=== PATIENT | female | born 1930 | race Caucasian/White ===

== ENCOUNTER 2016-12-17 19:11 | Emergency (ER) | payer OTHER ==
[~2016-12-17] VITALS: Ht 157.5 cm; Wt 71.4 kg
[~2016-12-17 19:11] MED LIST: CIPRO500 MG PO
[2016-12-17 20:08] LABS: HEMATOCRIT 38.4 % (36.0-46.0); MCH 29.5 PG (29.0-34.0); MCHC 33.6 G/DL (30.0-36.0); MCV 87.9 FL (83-99); MEAN PLAT.VOLUME 9.7 uM^3 (9.5-12.4); PLATELET COUNT 184 K/uL (156-360); RBC DIS.WIDTH-CV 12.7 % (11.8-14.6); RBC DIS.WIDTH-SD 41.1 % (39-53); RED BLOOD COUNT 4.37 M/uL (3.80-5.20); WHITE BLOOD COUNT 5.9 K/uL (4.1-10.2)
[2016-12-17 20:24] LABS: CHLORIDE 99 mEq/L (99-109); POTASSIUM 4.2 mEq/L (3.7-5.4); SODIUM 137 mEq/L (136-147)
[2016-12-17 20:26] LABS: GLUCOSE 100 mg/dL (70-99)
[2016-12-17 20:27] LABS: ANION GAP 13 MEQ/L (2-14)
[2016-12-17 20:29] LABS: GFR ESTIMATE (CALCULATED) 38 mL/min/; TROP-I INTERPRETATION NEGATIVE; TROPONIN-I < 0.01 ng/mL (0.0-0.30)
[2016-12-17 20:30] LABS: UREA NITROGEN (BUN) 46 mg/dL (9-23)
[2016-12-17 22:10] LABS: ADD MIUA? YES; BILIRUBIN NEGATIVE; BLOOD NEGATIVE; COLOR YELLOW ((YELLOW)); GLUCOSE (STRIP) NEGATIVE; KETONES NEGATIVE; LEUKOCYTES MODERATE; NITRITE NEGATIVE; PROTEIN (STRIP) NEGATIVE; SPECIFIC GRAVITY 1.015 (1.000-1.030); UROBILINOGEN 0.2 MG/DL (0.2-1.0)
[2016-12-17 22:18] LABS: BACTERIA NONE SEEN /HPF; EPITHELIAL CELLS RARE /HPF; HYALINE CASTS 0-5 /LPF; MUCUS TRACE /LPF; RED BLOOD CELLS 0-5 /HPF (0-5); UCUL ADDED? NO
[2016-12-17] MEDS ORDERED: KEFLEX500 MG PO (22:27)
[2016-12-17 22:50] VITALS: BP 150/76
== END 2016-12-17 22:50 | disposition home or self-care (01) ==
LOC: EME → EDBD 19:11 → EME 22:50
PROVIDERS: Physician Assistant
DX: N39.0 Urinary tract infection, site not specified (principal); R41.82 Altered mental status, unspecified; W01.198A Fall on same level from slipping, tripping and stumbling with subsequent striking against other object, initial encounter; Y93.E1 Activity, personal bathing and showering; R55 Syncope and collapse; I95.9 Hypotension, unspecified; I10 Essential (primary) hypertension; E03.9 Hypothyroidism, unspecified; F03.90 Unspecified dementia, unspecified severity, without behavioral disturbance, psychotic disturbance, mood disturbance, and anxiety
CPT/HCPCS: 70450; 71020; 80048; 81003; 84484; 85027; 93005; 99281; 99285

== ENCOUNTER 2017-08-22 18:08 | Emergency (ER) | payer OTHER ==
[~2017-08-22] VITALS: Ht 170.2 cm; Wt 71.3 kg
[~2017-08-22 18:08] MED LIST changes: +KEFLEX500 MG PO
[2017-08-22 18:28] LABS: INTER. NORMALIZED RATIO 1.1; PROTHROMBIN TIME 12.3 SEC (10.2-12.9)
[2017-08-22 18:30] LABS: AMYLASE 61 IU/L (1-118)
[2017-08-22 18:31] LABS: PTT 26.8 SEC (25-37)
[2017-08-22 18:33] LABS: CREATININE 1.4 mg/dL (0.6-1.3); POTASSIUM 3.8 mEq/L (3.7-5.4)
[2017-08-22 18:39] LABS: LIPASE 34 U/L (1.0-51.0)
[2017-08-22 18:47] LABS: TROP-I INTERPRETATION NEGATIVE; TROPONIN-I < 0.01 ng/mL (0.0-0.30)
[2017-08-22] MEDS ORDERED: ARICEPT5 MG PO (19:06)
[2017-08-22] MEDS ORDERED: LISINOPRIL20 MG PO (19:07)
[2017-08-22] MEDS ORDERED: LEVOTHYROXINE175 MCG PO (19:07)
[2017-08-22] MEDS ORDERED: HYDROCHLOROTHIA25 MG PO (19:07)
[2017-08-22 20:55] VITALS: BP 125/70
== END 2017-08-22 20:59 | disposition short-term general hospital (02) ==
LOC: EME 18:08
PROVIDERS: Emergency Medicine
DX: I63.9 Cerebral infarction, unspecified (principal); I10 Essential (primary) hypertension; F03.90 Unspecified dementia, unspecified severity, without behavioral disturbance, psychotic disturbance, mood disturbance, and anxiety; E03.9 Hypothyroidism, unspecified
CPT/HCPCS: 70450; 70496; 70498; 80047; 82150; 83690; 84484; 85610; 85730; 99281; 99285